=== PATIENT | male | born 1995 | race Caucasian/White ===

== ENCOUNTER 2023-03-23 15:11 | Emergency (ER) | payer OTHER, SELFPAY ==
[2023-03-23 15:12] VITALS: BP 138/91; PULSE 88; RESP 18; TEMP 36.7; O2SAT 96; BMI 30.3
[2023-03-23 15:20] VITALS: BP 138/91; PULSE 78; O2SAT 100
[2023-03-23] MEDS: SENNA 8.6MG TABLET 8.59999999999999964 MG PO (15:42)
[2023-03-23] MEDS: MAGNESIUM CITRATE 10OZ BOTTLE 10 OZ PO (15:42)
--- NOTE | 2023-03-23 15:45 | ED_ITS ---
Discharge Plan Disposition Patient Disposition: Eloped Chief Complaint: Abdominal Pain Referrals Follow up/Referrals: Provider,Referral, [Primary Care Provider] - See instructions Clinical Impressions Clinical Impression: Acute constipation Instructions Patient Instructions: DI for Acute Abdominal Pain Discharge ED Provider: Max Wong General Adult HPI General Chief complaint: Abdominal Pain Stated complaint: stomach pain , pressure pain Time Seen by Provider: 03/23/23 15:20 Mode of Arrival: Ambulatory Source of Information: Patient Limitations: No Limitations Description of Symptoms (Recalled from ER Triage Doc. by RN): Patient reports he has pressure all in stomach. Reports he has taken stool softener and laxatives but has only had one small hard bowel movement. Patient states It feels like I have to poop History of Present Illness HPI narrative: 27-year-old male no relevant without any abdominal surgeries presenting with abdominal pressure. Is been going on since Monday, 5 days prior to this visit. Patient states it feels like a pressure. Last time he had a bowel movement was yesterday, 03/22 and it was small, hard balls. Since that time, he has felt increasingly bad abdominal pressure. No vomiting. He is passing gas. No fevers or chills, urinary symptoms, or any other concerns. Tried taking oral laxatives at home and that did not do the trick, so came for further assistance. Related Data Allergies Allergy/AdvReac Type Severity Reaction Status Date / Time No Known Allergies Allergy Verified 03/23/23 15:32 [facility] Disclaimer: The information contained in this section may have been updated after the patient was seen, as this information can be updated by other users. Social History Smoking Status: Current every day smoker alcohol intake: never current occupational status: employed Travel in the last 8 weeks: None ROS Obtained: Yes All systems reviewed & no additional complaints except as documented Physical Exam General General appearance: alert and in no apparent distress Head Head exam: atraumatic and normocephalic Eye Eye exam: Present normal appearance, PERRL and EOMI ENT ENT exam: Present mucous membranes moist Neck Neck exam: Present normal inspection, full ROM and trachea midline Respiratory Respiratory exam: Absent respiratory distress, wheezes, stridor, accessory muscle use or prolonged expiratory phase Cardiovascular Cardiovascular exam: Present normal rhythm Abdominal Exam Abdominal exam: Present soft; Absent distention, tenderness, guarding, rebound or rigidity Extremities Exam Extremities exam: Absent edema Neurological Exam Neurological exam: Present alert, oriented X3, CN II-XII intact and normal gait; Absent motor sensory deficit Skin Skin exam: Present warm and dry; Absent diaphoresis or erythema Medical Decision Making Medical Records Medical records reviewed: Yes I reviewed the patient's medical records. Steven Inquiry Pt receiving controlled substance: No Steven was queried for this patient: No Vital Signs: 03/23/23 15:12 03/23/23 15:20 Temperature 98.1 F Temperature Source Oral Pulse Rate 78 Pulse Rate [Right] 88 Respiratory Rate 18 Blood Pressure 138/91 H Blood Pressure [Right Arm] 138/91 H Blood Pressure Mean [Right Arm] 106 Blood Pressure Source [Right Arm] Automatic Cuff 02 Sat by Pulse Oximetry 96 100 Oxygen Delivery Method Room Air Room Air Orders (Tests/Meds): ED MEDICATIONS Discontinued Medications Generic Name Dose Route Start Last Admin Trade Name Freq PRN Reason Stop Dose Admin Magnesium Citrate 10 oz 03/23/23 15:29 03/23/23 15:42 Magnesium Citrate 10oz Bottle PO 03/23/23 15:30 10 oz ONCE ONE Administration Sennosides 8.6 mg 03/23/23 15:29 03/23/23 15:42 Senna 8.6mg Tablet PO 03/23/23 15:30 8.6 mg ONCE ONE Administration Medical Decision Narrative: 27-year-old male no relevant without any abdominal surgeries presenting with a bdominal pressure. Is been going on since Monday, 5 days prior to this visit. Patient states it feels like a pressure. Last time he had a bowel movement was yesterday, 03/22 and it was small, hard balls. Since that time, he has felt increasingly bad abdominal pressure. No vomiting. He is passing gas. No fevers or chills, urinary symptoms, or any other concerns. Tried taking oral laxatives at home and that did not do the trick, so came for further assistance. History obtained conversation with patient On arrival, patient hemodynamically stable, alert, oriented x4, appropriate, GCS 15, moving all extremities spontaneously, pupils equal and reactive to light. Full physical exam performed and significant for soft abdomen, well-appearing patient. No flank tenderness. Hemodynamically stable, afebrile, normotensive and nontachycardic. Bowel sounds normal. Differential includes constipation, gastritis, PUD, among others. Patient was given magnesium citrate and senna for symptomatic management and correction of underlying abnormalities. No workup was deemed necessary at this time including labs and imaging, although they were considered in this abdominal pain. Patient was placed in observation beginning at 1530 in order to give bowel regimen and monitor for and determine need for admission versus home-going. The patient was provided bowel regimen while awaiting results. I thought it would be reasonable to try bowel regimen prior to labs to see if it relieves symptoms given benign appearance. After bowel regimen, patient went to restroom shortly thereafter, had large-volume bowel movement and eloped prior to my reevaluation. Total observation time 2 hours Critical Care Critical Care Time Critical Care Time: No
--- NOTE | 2023-03-23 16:00 | PC.NURSE ---
Patient tolerated po mag citrate. No bowel movement at this time.
--- NOTE | 2023-03-23 17:18 | PC.NURSE ---
Patient eloped from hospital was not clear from MD. Patient had no IV access.
[2023-03-23 17:26] VITALS: BP 0/0; PULSE 0; RESP 0; TEMP -17.7; TEMP 0
== END 2023-03-23 17:00 | disposition left against medical advice (07) ==
PROVIDERS: Emergency Provider Emergency Medicine
DX: R10.9 Unspecified abdominal pain (principal); K59.00 Constipation, unspecified; F17.200 Nicotine dependence, unspecified, uncomplicated
CPT/HCPCS: 99283